=== PATIENT | male | born 1960 | race American Indian/Alaskan Native ===

== ENCOUNTER 2017-04-11 12:52 | Emergency (ER) | payer MEDICAID ==
[2017-04-11 13:32] LABS: Basophils % (Auto) 0.8 % (0.0-1.8); Eosinophils % (Auto) 3.4 % (0.0-4.3); Hematocrit 39.1 % (35.5-45.6); Hemoglobin 12.9 gm/dl (11.8-15.2); Mean Corpuscular HGB Conc 33 % (32-34); Mean Corpuscular Hemoglobin 30 pg (28-32); Mean Corpuscular Volume 90 fl (84-94); Platelet Count 299 K/mm3 (140-440); Red Blood Count 4.35 M/mm3 (3.65-5.03); Red Cell Distribution Width 15.2 % (13.2-15.2); White Blood Count 6.3 K/mm3 (4.5-11.0)
[2017-04-11 13:45] LABS: Anion Gap 17 mmol/L; BUN/Creatinine Ratio 22.22; Blood Urea Nitrogen 20 mg/dL (9-20); Calcium 8.9 mg/dL (8.4-10.2); Carbon Dioxide 24 mmol/L (22-30); Chloride 103.7 mmol/L (98-107); Glucose 86 mg/dL (75-100); Sodium 141 mmol/L (137-145)
[2017-04-11 14:22] LABS: Urine Drugs of Abuse Note Disclamer
[2017-04-11 14:37] LABS: Bacteria,Urine 1+ /HPF (Negative); Bilirubin,Urine NEG (Negative); Blood,Urine NEG (Negative); Ketones,Urine NEG (Negative); Leukocyte Esterase,Urine NEG (Negative); Mucus,Urine 3+ /HPF; Nitrite,Urine NEG (Negative); Protein,Urine <15 mg/dL mg/dL (Negative); Urobilinogen,Urine < 2.0 mg/dL (<2.0)
--- NOTE | 2017-04-11 16:17 | Emergency Department Report ---
ED Psych HPI - General Chief Complaint: Psych Stated Complaint: SI Time Seen by Provider: 04/11/17 15:33 Source: patient Mode of arrival: Ambulatory - History of Present Illness Initial Comments: 56-year-old male with a history of psychiatric illness with complaints of auditory hallucinations SI and HI. Patient states she is very agitated lately. States he's had some stressful events in his life recently. Denies any other complaints. Doesn't denies any medical problems. States he has not been using alcohol or drugs. MD Complaint: suicidal ideation, feels depressed -: week(s) Associated Psychiatric Symptoms: depression, suicidal ideation, homicidal ideation, auditory hallucinations History of same: Yes Quality: constant, getting worse Context: not taking psychiatric - Related Data Home Medications Medication Instructions Recorded Confirmed Last Taken Seroquel 100 mg PO DAILY 04/11/17 04/11/17 Unknown traZODone 50 mg PO HS 04/11/17 04/11/17 Unknown Allergies Allergy/AdvReac Type Severity Reaction Status Date / Time No Known Allergies Allergy Verified 04/11/17 15:34 ED Review of Systems ROS: Stated complaint: SI Other details as noted in HPI Comment: All other systems reviewed and negative Constitutional: denies: chills, fever Eyes: denies: eye pain, eye discharge, vision change ENT: denies: ear pain, throat pain Respiratory: denies: cough, shortness of breath, wheezing Cardiovascular: denies: chest pain, palpitations Endocrine: no symptoms reported Gastrointestinal: denies: abdominal pain, nausea, diarrhea Genitourinary: denies: urgency, dysuria Musculoskeletal: denies: back pain, joint swelling, arthralgia Skin: denies: rash, lesions Neurological: denies: headache, weakness, paresthesias Psychiatric: depression, auditory hallucinations. denies: anxiety Hematological/Lymphatic: denies: easy bleeding, easy bruising ED Past Medical Hx - Past Medical History Hx Psychiatric Treatment: Yes (bipolar,schizophrenia,depression) Additional medical history: enlarged prostate - Social History Smoking Status: Current Every Day Smoker Substance Use Type: Alcohol, Cocaine, Marijuana, Methamphetamines - Medications Home Medications: Home Medications Medication Instructions Recorded Confirmed Last Taken Type Seroquel 100 mg PO DAILY 04/11/17 04/11/17 Unknown History traZODone 50 mg PO HS 04/11/17 04/11/17 Unknown History ED Physical Exam - General Limitations: No Limitations General appearance: alert, in no apparent distress - Head Head exam: Present: atraumatic, normocephalic - Eye Eye exam: Present: normal appearance. Absent: scleral icterus, conjunctival injection - ENT ENT exam: Present: mucous membranes moist - Neck Neck exam: Present: normal inspection - Respiratory Respiratory exam: Present: normal lung sounds bilaterally. Absent: respiratory distress - Cardiovascular Cardiovascular Exam: Present: regular rate, normal rhythm. Absent: systolic murmur, diastolic murmur, rubs, gallop - GI/Abdominal GI/Abdominal exam: Present: soft, normal bowel sounds - Rectal Rectal exam: Present: deferred - Extremities Exam Extremities exam: Present: normal inspection - Back Exam Back exam: Present: normal inspection - Neurological Exam Neurological exam: Present: alert, oriented X3 - Psychiatric Psychiatric exam: Present: normal affect, normal mood. Absent: depressed, agitated - Skin Skin exam: Present: warm, dry, intact, normal color. Absent: rash ED Course Vital Signs 04/11/17 12:56 Temperature 98.3 F Pulse Rate 80 Respiratory 20 Rate Blood Pressure 125/87 O2 Sat by Pulse 99 Oximetry ED Medical Decision Making - Lab Data Result diagrams: 04/11/17 13:15 04/11/17 13:15 Laboratory Results - last 24 hr 04/11/17 04/11/17 04/11/17 13:15 13:15 13:15 WBC 6.3 RBC 4.35 Hgb 12.9 Hct 39.1 MCV 90 MCH 30 MCHC 33 RDW 15.2 Plt Count 299 Lymph % (Auto) 31.4 [place] % (Auto) 12.7 H Eos % (Auto) 3.4 Baso % (Auto) 0.8 Lymph # 2.0 [place] # 0.8 Eos # 0.2 Baso # 0.0 Seg Neutrophils % 51.7 Seg Neutrophils # 3.3 Sodium 141 Potassium 4.0 Chloride 103.7 Carbon Dioxide 24 Anion Gap 17 BUN 20 Creatinine 0.9 Estimated GFR > 60 BUN/Creatinine Ratio 22.22 Glucose 86 Calcium 8.9 Urine Color Urine Turbidity Urine pH Ur Specific [place] Urine Protein Urine Glucose (UA) Urine Ketones Urine Blood Urine Nitrite Urine Bilirubin Urine Urobilinogen Ur Leukocyte Esterase Urine WBC (Auto) Urine RBC (Auto) Urine Bacteria (Auto) Calcium Oxalate Crystal Urine Mucus Urine Opiates Screen Urine Methadone Screen Ur Barbiturates Screen Ur Phencyclidine Scrn Ur Amphetamines Screen U Benzodiazepines Scrn Urine Cocaine Screen U Marijuana (THC) Screen Drugs of Abuse Note Plasma/Serum Alcohol < 0.01 04/11/17 04/11/17 13:39 13:39 WBC RBC Hgb Hct MCV MCH MCHC RDW Plt Count Lymph % (Auto) [place] % (Auto) Eos % (Auto) Baso % (Auto) Lymph # [place] # Eos # Baso # Seg Neutrophils % Seg Neutrophils # Sodium Potassium Chloride Carbon Dioxide Anion Gap BUN Creatinine Estimated GFR BUN/Creatinine Ratio Glucose Calcium Urine Color Yellow Urine Turbidity Clear Urine pH 5.[address] 1.030 Urine Protein <15 mg/dl Urine Glucose (UA) Neg Urine Ketones Neg Urine Blood Neg Urine Nitrite Neg Urine Bilirubin Neg Urine Urobilinogen < 2.0 Ur Leukocyte Esterase Neg Urine WBC (Auto) 3.0 Urine RBC (Auto) 3.0 Urine Bacteria (Auto) 1+ Calcium Oxalate Crystal 3+ Urine Mucus 3+ Urine Opiates Screen Presumptive negative Urine Methadone Screen Presumptive negative Ur Barbiturates Screen Presumptive negative Ur Phencyclidine Scrn Presumptive negative Ur Amphetamines Screen Presumptive negative U Benzodiazepines Scrn Presumptive negative Urine Cocaine Screen Presumptive positive U Marijuana (THC) Screen Presumptive negative Drugs of Abuse Note Disclamer Plasma/Serum Alcohol - Medical Decision Making Patient is medically clear for psychiatric evaluation. Patient complaining of SI and HI with auditory hallucinations. Plan to place the patient on a psychiatric hold and have the patient evaluated by psychiatry. Critical care attestation.: If time is entered above; I have spent that time in minutes in the direct care of this critically ill patient, excluding procedure time. ED Disposition Clinical Impression: Suicidal ideation, Auditory hallucination Disposition: [id number] PSY HOSP/PSY UNIT Is pt being admited?: No Condition: Stable
[2017-04-12 08:36] VITALS: BP 119/65
== END 2017-04-12 09:46 ==
LOC: ED 12:52 → EEVIPCON 12:52 → ED 04-12 09:46
DX: R45.851 Suicidal ideations (principal); R44.0 Auditory hallucinations; F31.9 Bipolar disorder, unspecified; F20.9 Schizophrenia, unspecified; F17.200 Nicotine dependence, unspecified, uncomplicated; F14.10 Cocaine abuse, uncomplicated; F12.10 Cannabis abuse, uncomplicated
CPT/HCPCS: 36415; 80048; 80307; 81001; 85025; 99285; G0480; 80320